=== PATIENT | male | born 1935 | race African-American/Black ===

== ENCOUNTER 2019-10-25 11:33 | Emergency (ER) | payer OTHER ==
[~2019-10-25] VITALS: Ht 180.3 cm; Wt 82.0 kg
[2019-10-25] MEDS ORDERED: ONDANSETRON 4MG ODT PO STA (11:58)
[2019-10-25] MEDS ORDERED: MECLIZINE 25MG TABLET PO ONE (12:00)
[2019-10-25] MEDS ORDERED: ONDANSETRON HCL 4MG/2ML INJ IV ONE (12:00)
[2019-10-25 12:25] LABS: BASOPHILS % 0.6 % (0.0-2.0); CHLORIDE 108 mEq/L (98-107); EOSINOPHILS % 2.4 % (0.0-5.0); HEMATOCRIT. 42.9 % (42.0-52.0); HEMOGLOBIN. 14.2 g/dL (14.0-18.0); LYMPHOCYTES % 27.3 % (20.0-50.0); MEAN CORPUSCULAR HEMOGLOBIN 28.3 pg (28.0-32.0); MEAN CORPUSCULAR VOLUME 85.3 fL (80.0-94.0); MEAN PLATELET VOLUME 8.6 fl (7.4-10.4); MONOCYTES % 7.7 % (2.0-8.0); PLATELET 147 x1000/uL (130-400); RED BLOOD CELL COUNT 5.03 mill/uL (4.7-6.1); RED CELL DISTRIBUTION WIDTH 15.2 % (11.6-14.6)
[2019-10-25 14:45] VITALS: BP 168/99
== END 2019-10-25 15:10 | disposition short-term general hospital (02) ==
LOC: ER 11:59 → CANBEDREQ 22:41
DX: R55 Syncope and collapse (principal); R42 Dizziness and giddiness; I10 Essential (primary) hypertension; R11.2 Nausea with vomiting, unspecified
CPT/HCPCS: 36415; 70450; 71045; 80053; 83880; 84484; 85025; 93005; 96374; 99285; J2405; J8597

== ENCOUNTER 2021-10-21 11:46 | Emergency (ER) | payer OTHER ==
[~2021-10-21] VITALS: Ht 180.3 cm; Wt 80.0 kg
[2021-10-21] MEDS ORDERED: SODIUM CHLORIDE 0.9% 1,000 ML IV ONE (12:00)
[2021-10-21 13:06] LABS: HEMATOCRIT. 38.2 % (42.0-52.0); HEMOGLOBIN. 12.4 g/dL (14.0-18.0); MEAN CORPUSCULAR HEMOGLOBIN 26.9 pg (28.0-32.0); MEAN CORPUSCULAR VOLUME 82.4 fL (80.0-94.0); MEAN PLATELET VOLUME 8.7 fl (7.4-10.4); PLATELET 128 x1000/uL (130-400); RED BLOOD CELL COUNT 4.63 mill/uL (4.7-6.1); RED CELL DISTRIBUTION WIDTH 16.3 % (11.6-14.6)
[2021-10-21 13:15] LABS: CHLORIDE 108 mEq/L (98-107)
[2021-10-21 13:24] LABS: CREATINE KINASE 888 IU/L (39-308)
[2021-10-21 13:59] LABS: PLATELET ESTIMATE SLIGHTLY DECREASED
[2021-10-21 14:18] LABS: CLARITY URINE CLEAR (CLEAR); COLOR URINE DARK YELLOW (YELLOW); KETONES URINE TRACE (NEGATIVE); LEUKOCYTE ESTERASE URINE NEGATIVE (NEGATIVE); NITRITE URINE NEGATIVE (NEGATIVE); OCCULT BLOOD URINE NEGATIVE (NEGATIVE); PROTEIN URINE 1+ (NEGATIVE); SPECIFIC GRAVITY URINE 1.022 (1.005-1.030)
[2021-10-21 15:06] VITALS: BP 150/89
[2021-10-21] MEDS ORDERED: AMLODIPINE 5MG TABLET PO ONE (15:45)
== END 2021-10-21 15:22 | disposition short-term general hospital (02) ==
LOC: ER 11:49
DX: R53.1 Weakness (principal); I10 Essential (primary) hypertension; Z86.73 Personal history of transient ischemic attack (TIA), and cerebral infarction without residual deficits
CPT/HCPCS: 36415; 70450; 71045; 80053; 81003; 82550; 83880; 84484; 85025; 96360; 96361; 99285; J7030